=== PATIENT | male | born 1955 | race Caucasian/White ===

== ENCOUNTER 2016-06-23 00:34 | Outpatient (CLI) | END 2016-06-23 00:35 | disposition home or self-care (01) | LOC: AMBL 00:34 | PROVIDERS: ATTEND Internal Medicine Geriatric Medicine | DX: R25.3 Fasciculation (principal); R25.1 Tremor, unspecified; R00.0 Tachycardia, unspecified; C71.9 Malignant neoplasm of brain, unspecified ==